=== PATIENT | female | born 1945 | race Caucasian/White ===

== ENCOUNTER 2020-09-03 08:49 | Inpatient (IN) ==
[2020-08-28 12:16] LABS: Basophils # (Auto) 0.06 K/mcL (0.00-0.20); Basophils % (Auto) 1.6 % (0.0-2.0); Eosinophils # (Auto) 0.14 K/mcL (0.00-0.70); Eosinophils % (Auto) 3.7 % (0.0-7.0); Hematocrit 36.6 % (36.0-48.0); Hemoglobin 11.4 g/dL (12.0-15.0); Lymphocytes # (Auto) 1.26 K/mcL (1.50-4.80); Lymphocytes % (Auto) 33.2 % (15.0-49.0); Mean Cell Volume 94.1 fL (80.0-100.0); Mean Corpuscular HGB Conc 31.1 g/dL (31.0-36.0); Monocytes # (Auto) 0.55 K/mcL (0.10-0.90); Monocytes % (Auto) 14.5 % (1.0-12.0); Platelet Count 286 K/mcL (140-440); RBC 3.89 M/mcL (4.00-5.20); WBC 3.8 K/mcL (4.5-11.0)
[2020-08-28 12:18] LABS: Blood Urea Nitrogen 23 mg/dL (8-23); Carbon Dioxide 30 mmol/L (22-30); Chloride 103 mmol/L (96-108); Glomerular Filtration Rate 33; Glucose 99 mg/dL (70-105)
[2020-08-28 13:05] LABS: Appearance,Urine CLEAR (Clear); Bilirubin,Urine Negative (Negative); Color,Urine YELLOW; Culture Indicated,Urine No; Glucose,Urine (UA) Negative (Negative); Ketones,Urine Negative (Negative); Leukocyte Esterase,Urine 500 /ug (Negative); Mucus,Urine FEW /hpf; Nitrate,Urine Negative (Negative); Protein,Urine Negative (Negative); Specific Gravity,Urine 1.023 (1.000-1.035); Urine Blood Negative (Negative); Urine RBC < 1 /hpf (0-3); Urine Squamous Epithelial Cell 14 /hpf (0-4); Urine Transitional Epi Cells 1 /hpf (0-2); Urine WBC 2 /hpf (0-4); Urobilinogen,Urine Negative
[~2020-09-03 08:49] MED LIST: ceFAZolin 2 GM in DEXTROSE 5% IN WATER 50 ML IV SCH
[2020-09-03] MEDS ORDERED: SCOPOLAMINE 1 PATCH PATCH TOPICAL PRN (09:00)
[2020-09-03] MEDS ORDERED: IPRATROPIUM/ALBUTEROL 3 ML AMPUL.NEB NEB PRN ×2 (09:00→13:50)
[2020-09-03] MEDS ORDERED: LIDOCAINE HCL/PF 100 MG/5 ML SYRINGE IV ONE (11:25)
[2020-09-03] MEDS ORDERED: TRANEXAMIC ACID 1,000 MG/10 ML VIAL IV ONE ×2 (11:25→14:32)
[2020-09-03] MEDS ORDERED: ONDANSETRON 4 MG/2 ML VIAL ONE (11:25)
[2020-09-03] MEDS ORDERED: PROPOFOL 200 MG/20 ML VIAL IV ONE (11:25)
[2020-09-03] MEDS ORDERED: MIDAZOLAM 5 MG/5 ML VIAL ONE (11:25)
[2020-09-03] MEDS ORDERED: ePHEDrine 50 MG/ML AMPUL IV ONE (11:25)
[2020-09-03] MEDS ORDERED: DEXAMETHASONE 10 MG/ML VIAL ONE (11:25)
[2020-09-03] MEDS ORDERED: GLYCOPYRROLATE 0.2 MG/ML VIAL IV ONE (11:25)
[2020-09-03] MEDS ORDERED: FLUMAZENIL 0.1 MG/ML ML IV PRN (13:50)
[2020-09-03] MEDS ORDERED: NALOXONE HCL 0.4 MG/ML VIAL IV PRN (13:50)
[2020-09-03] MEDS ORDERED: HYDROmorphone 0.5 MG/0.5 ML SYRINGE IV PRN (13:50)
[2020-09-03] MEDS ORDERED: METOPROLOL TARTRATE 5 MG/5 ML VIAL IV PRN (13:50)
[2020-09-03] MEDS ORDERED: METHOCARBAMOL 1,000 MG/10 ML VIAL IV PRN ×2 (13:50→14:32)
[2020-09-03] MEDS ORDERED: PROMETHAZINE 25 MG/ML VIAL IV PRN (13:50)
[2020-09-03] MEDS ORDERED: fentaNYL 100 MCG/2 ML VIAL IV PRN (13:50)
[2020-09-03] MEDS ORDERED: ePHEDrine 50 MG/ML AMPUL IV PRN (13:50)
[2020-09-03] MEDS ORDERED: ONDANSETRON 4 MG/2 ML VIAL IV PRN (13:50)
[2020-09-03] MEDS ORDERED: ACETAMINOPHEN 1,000 MG/100 ML BAG IV ONE (13:50)
[2020-09-03] MEDS ORDERED: diphenhydrAMINE 50 MG/ML VIAL IV PRN (13:50)
[2020-09-03] MEDS ORDERED: ATROPINE SULFATE 0.4 MG/ML VIAL IV PRN (13:50)
[2020-09-03] MEDS ORDERED: LACTATED RINGERS 1,000 ML IV SCH (14:00)
[2020-09-03] MEDS ORDERED: ROPIVACAINE HCL/PF 20 ML VIAL IJ ONE (14:15)
[2020-09-03] MEDS ORDERED: METHOCARBAMOL 750 MG TABLET PO PRN (14:28)
[2020-09-03] MEDS ORDERED: HYDROcodone/APAP 10/325MG TABLET PO PRN (14:28)
[2020-09-03] MEDS ORDERED: BISACODYL 10 MG SUPP.RECT PR PRN (14:32)
[2020-09-03] MEDS ORDERED: MAGNESIUM HYDROXIDE 30 ML ORAL.SUSP PO PRN (14:32)
[2020-09-03] MEDS ORDERED: FLEETS ADULT ENEMA PR PRN (14:32)
[2020-09-03] MEDS ORDERED: HYDROCODONE/APAP 7.5/325MG TABLET PO PRN (14:32)
[2020-09-03] MEDS ORDERED: BENZOCAINE/MENTHOL 1 LOZENGE PO PRN (14:32)
[2020-09-03] MEDS ORDERED: POLYETHYLENE GLYCOL 3350 17 GM PACKET PO PRN (14:32)
--- NOTE | 2020-09-03 14:40 | Brief Operative Note ---
Brief Operative Note Date of procedure: 09/03/20 Pre-op diagnosis: failed total ankle replacement Post-op diagnosis: same Procedure: revision right total ankle replacement Grafts/Implants: Yes Anesthesia: GETA Findings: loose ankle replacement Complications: none Surgeon: Arnulfo Diamond Estimated blood loss (cc): 100 Tourniquet Time (Minutes): 120 Specimens Removed/Pathology: none sent Condition: stable Disposition: PACU
--- NOTE | 2020-09-03 15:20 | XRay Report ---
HISTORY: Postop right ankle arthroplasty FINDINGS: There is a well-positioned right total ankle prosthesis. There is a large screw placed through the medial malleolus into the medial shaft of the tibia. There are two transversely oriented screws in the distal end of the fibula. Overlying cast material obscures fine bone detail. No fracture is detected. Impression: well-positioned right ankle prosthesis Interpreted and Authenticated by: Toñito Sorto 09/03/20
[2020-09-03] MEDS: 0.9 % SODIUM CHLORIDE 1,000 ML IV SCH (15:30)
[2020-09-03] MEDS: HYDROmorphone 0.5 MG/0.5 ML SYRINGE IV PRN ×2 (15:56→20:51)
[2020-09-03] MEDS: traMADol 50 MG TABLET PO PRN (17:47)
[2020-09-03] MEDS: ceFAZolin 1 GM VIAL IV SCH (20:16)
[2020-09-03] MEDS: DOCUSATE SODIUM 100 MG CAPSULE PO SCH (20:16)
[2020-09-03] MEDS: 0.9 % SODIUM CHLORIDE 10 ML SYRINGE IV SCH (20:26)
[2020-09-03] MEDS: ONDANSETRON 4 MG/2 ML VIAL IV PRN (20:50)
[2020-09-03] MEDS ORDERED: ASPIRIN 325 MG ENTERIC COATED TABLET PO SCH (21:00)
[2020-09-03] MEDS ORDERED: SENNOSIDES 1 TABLET PO SCH (21:00)
[2020-09-03] MEDS: ASPIRIN 81 MG TAB.CHEW PO SCH (21:56)
[2020-09-03] MEDS: ASPIRIN 81 MG TAB.CHEW ONE ×2 (22:02→22:03)
[2020-09-04] MEDS: ONDANSETRON 4 MG/2 ML VIAL IV PRN (00:25)
[2020-09-04] MEDS: ceFAZolin 1 GM VIAL IV SCH (02:49)
[2020-09-04] MEDS: traMADol 50 MG TABLET PO PRN (05:08)
[2020-09-04] MEDS: 0.9 % SODIUM CHLORIDE 1,000 ML IV SCH (06:10)
[2020-09-04] MEDS: 0.9 % SODIUM CHLORIDE 10 ML SYRINGE IV SCH (06:11)
--- NOTE | 2020-09-04 08:06 | Discharge Summary ---
Discharge Provider Provider Patient information: Note initiated : 09/04/20 at 8:04 am Service Date, if different from initiated Date: [] Patient: Amanda Ndiaye 75 y/o F admitted on 09/03/20 for Right Total Ankle Revision. Patient has been dealing with a good amount of pain but is tolerating well. She is using a walker for ambulation. She denies any CP, RAMOS, nausea, vomitting, or fever. Chief Complaint: [] Date of admission: 09/03/20 08:49 Discharge date: 09/04/20 Primary care physician: Alexia Chauhan COURSE Hospital Course Hospital course: Patient was admitted after surgery for PT and pain control. Her stay was uneventful and she was discharged on POD 1. Discharge diagnosis: s/p revision right total ankle arthroplasty Time Spent with Patient Time attestation: Total time spent providing and/or coordinating discharge services: Physical Examination Narrative Exam Narrative: Patients RLE is NVI, no calf tenderness, splint is fitting well in place. Exam Incision healing: Yes Incision draining: No Incision red: No Clean and dry: Yes Weight bearing status: none Range of motion: N/A DC Instructions-General Patient Instructions Dressing Care: Cover dressing in shower Discharge Plan Patient/Caregiver Discharge Instructions Activity: non-weight bearing Diet: Regular Diet Prescriptions: New tramadol 50 mg Tablet 50 - 100 mg PO Q6HP PRN (Reason: Pain) Qty: 60 RF: 0 aspirin 81 mg Tablet,Chewable 81 mg PO BID Qty: 60 RF: 0 hydrocodone-acetaminophen 5-325 mg Tablet 1 tab PO Q4H PRN (Reason: Pain) Qty: 60 RF: 0 ondansetron HCl 4 mg tablet 4 mg PO Q8H PRN (Reason: nausea and vomiting) Qty: 30 RF: 1 Continued furosemide 40 mg tablet 40 mg PO QDAY PRN (Reason: edema) Qty: 90 RF: 0 omeprazole 20 mg capsule,delayed release(DR/EC) 20 mg PO QAM Qty: 90 RF: 3 lisinopril 10 mg tablet 10 mg PO QDAY Qty: 30 RF: 3 (DME) Shoe inserts Qty: 2 RF: 3 potassium chloride 10 mEq Capsule, Extended Release 10 meq PO QDAY RF: 0 acetaminophen [Tylenol Extra Strength] 500 mg Tablet 1,000 mg PO BID RF: 0 gabapentin 600 mg tablet 600 mg PO QID RF: 0 cyanocobalamin (vitamin B-12) 1,000 mcg/mL solution 1,000 mcg IM QMONTH RF: 0 Follow Up Plan Follow up with: Nasir Walker PA-C [[facility]] - 09/09/20 Patient Disposition: Home, Self-Care Rehab Potential: Good I certify that the patient requires SNF services: No Overall status at discharge: patient is progressing back to baseline Discharge Orders: Discharge Order (Routine); Ordered 09/04/20 Ordered By: Nasir Walker Pending Pending Pending: Resuscitation Status Full Code Diet Regular Diet Start MonSep 03 Dinner Aspirin (Aspirin) 81 mg PO BID [facility] Last Admin: 09/03/20 21:56 Dose: 81 mg Documented by: XAVIER Docusate Sodium (Colace) 100 mg PO BID [facility] Last Admin: 09/03/20 20:16 Dose: 100 mg Documented by: XAVIER Hydromorphone HCl (Dilaudid) 0.5 - 1 mg IV Q1HP PRN; Protocol PRN Reason: Per Pain Protocol Last Admin: 09/03/20 20:51 Dose: 0.5 mg Documented by: Admin: 09/03/20 15:56 Dose: 0.5 mg Documented by: GILMA Sodium Chloride (Sodium Chloride 0.9%) 1,000 mls @ 75 mls/hr IV .[id number] [facility] Last Admin: 09/04/20 06:10 Dose: 75 mls/hr Documented by: Infusion: 09/04/20 04:50 Dose: 75 mls/hr Documented by: Admin: 09/03/20 15:30 Dose: 75 mls/hr Documented by: GILMA Methocarbamol (Robaxin) 750 mg IV Q6HP PRN PRN Reason: Muscle Spasm Last Admin: 09/03/20 22:00 Dose: 750 mg Documented by: XAVIER Ondansetron HCl (Zofran) 4 mg IV Q4HP PRN; Protocol PRN Reason: Nausea And Vomiting Last Admin: 09/04/20 00:25 Dose: 4 mg Documented by: Admin: 09/03/20 20:50 Dose: 4 mg Documented by: XAVIER Senna (Senokot) 2 tab PO HS [facility] Last Admin: 09/03/20 20:16 Dose: 2 tab Documented by: XAVIER Sodium Chloride (Saline Flush) 10 ml IV Q8 [facility] Last Admin: 09/04/20 06:11 Dose: Not Given Documented by: Admin: 09/03/20 20:26 Dose: Not Given Documented by: XAVIER Tramadol HCl (Ultram) 50 - 100 mg PO Q6HP PRN; Protocol PRN Reason: Pain Last Admin: 09/04/20 05:08 Dose: 50 mg Documented by: Admin: 09/03/20 17:47 Dose: 50 mg Documented by: GILMA Shift Summary 09/04/20 04:32 Shift Summary by Mei Joshi Patient alert and oriented x4. Slept for few hours this shift. Medicated with IV Dilaudid 0.5mg IV x1 and Robaxin IV x1 for throbbing pain from right ankle. Patient complained of chills and vomitted twice this shift. Given Zofran x2 with good effect. IV on left forearm infiltrated. New IV placed on left forearm #2. IVF NS@75 mls infusing well. Patient voided adequately. Right ankle dressing CDI. Elevated leg on pillows. Up with minimal contact assist using FWW and gait belt to bedside commode. Non-wt bearing on right ankle. Weaned oxygen to 1L nasal cannula, sat 94%. WA low 100's bpm. BP stable. Initialized on 09/04/20 04:32 - END OF NOTE
[2020-09-04] MEDS: DOCUSATE SODIUM 100 MG CAPSULE PO SCH (08:21)
[2020-09-04] MEDS: ASPIRIN 81 MG TAB.CHEW PO SCH (08:21)
--- NOTE | 2020-09-04 09:12 | Operative Note ---
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 POSTOPERATIVE DIAGNOSIS: Failed right total ankle replacement. PROCEDURE: Revision right total ankle prosthesis. SURGEON: Arnulfo Diamond M.D. WIC SITE COORDINATOR: Nasir Walker PA-C. The PA's assistance was required for the safe and efficient completion of the entire case. This provider's expertise and technical skill were required throughout the case. The PA assisted with preoperative coordination, intraoperative retraction, wound closure, dressing and splint application, as well as postoperative documentation and care coordination. ANESTHESIA: General. SUMMARY OF PROCEDURE: General anesthesia was obtained. The right leg was prepped and draped. The patient had a previous midline incision over the ankle. This was mid-ankle. This was reopened and taken down to the anterior muscles and tendons. The interval was developed between the EHL and the tibialis anterior. This was taken down to the anterior aspect of the tibia. This was exposed subperiosteally. The Prophecy scan called for the Inbone tibial component. The pins were placed to make this cut. The components sized to a 4 long. The tibial cuts were made. At this point, we were just in the area of the tibial component. This was impacted down towards the joint to ultimately remove it. Prior to that, the insert was removed as well. We then coupled the tibia to the talus. The ankle was placed in a neutral position in terms of dorsiflexion/plantar flexion. Using the carpal guide, the pins were placed into the talar neck. These were confirmed to be in good position on the mini C-arm views. There was exuberant spur formation in the distal talus. The cut was made, removing the talar bone and the component was removed as well. We next prepared the intramedullary guide and stem of the tibia. The C-bracket was applied. The calcaneus was marked. A stab incision was made into the calcaneus. I then drilled a 6 mm drill across the calcaneus, talus, and into the tibia. The reamers were next used and I reamed about 4 cm up the tibia with a 16 mm reamer and then the touched the base with an 18 mm reamer. The tibial stems were next placed. The tray was impacted as well. We next finished sizing in preparation of the talus. The talus sized to 3 as per the Prophecy plan as well. The medial and lateral balancing was done. The anterior to posterior balancing was then confirmed to be appropriate on lateral C-arm views. The talar component was next impacted. I then did trials of the insert. The best combination of motion and stability was with a 10 mm poly. The tourniquet was let down. All bleeding points were coagulated. Tourniquet time was under 2 hours. The retinacular closure was done with running 2-0 Monocryl. The subcutaneous tissue was closed with buried 2-0 Monocryl. The skin was hand sewn with 3-0 nylon. A sterile compressive dressing was applied, followed by a Niels boot. Sponge and needle count was correct. The patient tolerated the procedure well and was taken to the recovery room in stable condition. TJF:yared Job ID: [id number] Doc ID: [id number] Arnulfo Diamond MD
== END 2020-09-04 09:44 | disposition home or self-care (01) | DRG 469 ==
LOC: MEDSUR 08:49
PROVIDERS: ADMIT Orthopaedic Surgery Foot and Ankle Surgery; ATTEND Orthopaedic Surgery Foot and Ankle Surgery